=== PATIENT | female | born 1935 | race Caucasian/White ===

== ENCOUNTER 2017-07-09 14:19 | Observation (INO) ==
[2017-07-09] MEDS ORDERED: IBUPROFEN 600 MG TABLET PO PRN (14:59)
[2017-07-09] MEDS ORDERED: DOCUSATE SODIUM 100 MG CAPSULE PO PRN (14:59)
[2017-07-09] MEDS ORDERED: ONDANSETRON 4 MG/2 ML VIAL IV PRN (14:59)
[2017-07-09] MEDS ORDERED: THIAMINE INJ 100 MG, FOLIC ACID INJ 1 MG, MULTIVITAMIN INJ 10 ML in SODIUM CHLORIDE 0.4... IV SCH (15:00)
[2017-07-09] MEDS ORDERED: POTASSIUM CHLORIDE INJ 20 MEQ in SODIUM CHLORIDE 0.45% 1,000 ML IV SCH (15:00)
[2017-07-09] MEDS ORDERED: LORazepam 0.5 MG TABLET PO PRN (15:08)
[2017-07-09 18:36] LABS: INR 1.1; PT Patient Result 11.5 SECS
[2017-07-09] MEDS ORDERED: ACETAMINOPHEN 325 MG TABLET PO PRN (18:48)
[2017-07-09] MEDS: 1: THIAMINE INJ 100 MG, FOLIC ACID INJ 1 MG, MULTIVITAMIN INJ 10 ML in SODIUM CHLORIDE 0 IV SCH (19:10)
[2017-07-09] MEDS: POTASSIUM CHLORIDE RIDER 10 MEQ in PREMIX 1 EACH IV SCH ×2 (19:38→20:38)
[2017-07-09] MEDS: CIPROFLOXACIN INJ 400 MG in PREMIX 1 EACH IV SCH (19:40)
[2017-07-09] MEDS: ASPIRIN CHEW 81 MG TABLET PO SCH (21:45)
[2017-07-09] MEDS: traMADol 50 MG TABLET PO PRN (21:46)
[2017-07-09] MEDS: NEBIVOLOL 5 MG TABLET PO SCH (21:46)
[2017-07-09] MEDS: ESCITALOPRAM 10 MG TABLET PO SCH (21:47)
[2017-07-10 06:24] LABS: Calcium 7.4 MG/DL (8.5-10.1); Magnesium 1.8 MG/DL (1.8-2.4); Osmolality,Calculated 272.7 MOS/KG (273-304)
[2017-07-10 06:29] LABS: Potassium 2.5 MMOL/L (3.5-5.1)
[2017-07-10] MEDS: CIPROFLOXACIN INJ 400 MG in PREMIX 1 EACH IV SCH ×2 (06:37→20:55)
[2017-07-10] MEDS: 1: THIAMINE INJ 100 MG, FOLIC ACID INJ 1 MG, MULTIVITAMIN INJ 10 ML in SODIUM CHLORIDE 0 IV SCH (06:38)
[2017-07-10] MEDS ORDERED: POTASSIUM CHLORIDE 20 MEQ TABLET PO ONE ×2 (06:47→21:32)
[2017-07-10] MEDS ORDERED: LOPERAMIDE 2 MG CAPSULE PO PRN (08:18)
[2017-07-10] MEDS: PANTOPRAZOLE 40 MG TABLET PO SCH (08:52)
[2017-07-10] MEDS ORDERED: MAGNESIUM SULF RIDER 1 GM in PREMIX 1 EACH IV ONE (09:00)
[2017-07-10] MEDS ORDERED: POTASSIUM CHLORIDE RIDER 100 ML IV ONE ×2 (10:36→12:22)
[2017-07-10] MEDS: POTASSIUM CHLORIDE RIDER 10 MEQ in PREMIX 1 EACH IV SCH ×2 (10:42→12:28)
[2017-07-10] MEDS: traMADol 50 MG TABLET PO PRN (20:41)
[2017-07-10] MEDS: ASPIRIN CHEW 81 MG TABLET PO SCH (20:41)
[2017-07-10] MEDS: ESCITALOPRAM 10 MG TABLET PO SCH (20:42)
[2017-07-10] MEDS: NEBIVOLOL 5 MG TABLET PO SCH (20:42)
[2017-07-11 06:47] LABS: Eosinophils # 0.1 10*3/uL (0.0-0.87); Eosinophils % 2.4 % (0.00-10.9); Hematocrit 29.5 VOL% (35.7-47.0); Hemoglobin 10.1 GM/DL (12.0-16.0); Lymphocytes # 1.2 10*3/uL (1.4-4.0); Lymphocytes % 32.5 % (21.3-54.2); Mean Corpuscular HGB Conc 34.2 GM/DL (32-36); Mean Corpuscular Hemoglobin 35 PG (27-34); Mean Corpuscular Volume 101.4 FL (87-102); Mean Platelet Volume 11.2 FL (9.6-12.0); Monocytes # 0.5 10*3/uL (0.11-0.8); Monocytes % 11.8 % (1.7-12.7); Neutrophils % 52.3 % (38.7-73.9); Platelet Count 131 T/CUMM (130-400); Red Blood Count 2.91 MC/CUMM (3.8-5.5); Red Cell Distribution Width 13.7 % (9.3-17.3); White Blood Count 3.8 T/CUMM (4-12)
[2017-07-11 07:21] LABS: Calcium 7.8 MG/DL (8.5-10.1); Magnesium 2.2 MG/DL (1.8-2.4); Osmolality,Calculated 275.4 MOS/KG (273-304); Potassium 3.8 MMOL/L (3.5-5.1)
[2017-07-11 07:31] LABS: Albumin 1.8 G/DL (3.4-5.0); Bilirubin,Direct 0.62 MG/DL (0.0-0.20); Bilirubin,Indirect 0.4 MG/DL (0.0-1.0); Total Protein 4.5 G/DL (6.4-8.3)
[2017-07-11] MEDS: LORazepam 1 MG TABLET PO SCH ×4 (10:08→21:44)
[2017-07-11] MEDS: CIPROFLOXACIN INJ 400 MG in PREMIX 1 EACH IV SCH ×2 (10:08→21:30)
[2017-07-11] MEDS: PANTOPRAZOLE 40 MG TABLET PO SCH (10:08)
[2017-07-11] MEDS: ASPIRIN CHEW 81 MG TABLET PO SCH ×2 (21:30→21:44)
[2017-07-11] MEDS: NEBIVOLOL 5 MG TABLET PO SCH ×2 (21:30→21:44)
[2017-07-11] MEDS: ESCITALOPRAM 10 MG TABLET PO SCH ×2 (21:30→21:44)
[2017-07-12] MEDS: ESCITALOPRAM 10 MG TABLET PO SCH (00:51)
[2017-07-12] MEDS: LORazepam 1 MG TABLET PO SCH ×2 (00:51→09:30)
[2017-07-12] MEDS: NEBIVOLOL 5 MG TABLET PO SCH (00:51)
[2017-07-12] MEDS: ASPIRIN CHEW 81 MG TABLET PO SCH (00:51)
[2017-07-12 07:30] LABS: Calcium 8.5 MG/DL (8.5-10.1); Osmolality,Calculated 273.5 MOS/KG (273-304); Potassium 4.7 MMOL/L (3.5-5.1)
[2017-07-12] MEDS ORDERED: CIPROFLOXACIN 250 MG TABLET PO SCH (09:00)
[2017-07-12] MEDS: PANTOPRAZOLE 40 MG TABLET PO SCH (09:30)
[2017-07-12 12:21] VITALS: BP 109/62
== END 2017-07-12 15:20 | disposition home health service (06) ==
LOC: N.SDSINP
PROVIDERS: ADMIT Family Medicine; ATTEND Family Medicine